=== PATIENT | female | born 1980 | race Asian ===

== ENCOUNTER 2017-10-12 09:51 | Emergency (ER) | payer OTHER, SELFPAY ==
[~2017-10-12] VITALS: Ht 154.9 cm; Wt 68.0 kg
[2017-10-12 09:53] VITALS: BP 148/87
[2017-10-12] MEDS ORDERED: CEFAZOLIN 1,000 MG ONE (10:41)
[2017-10-12] MEDS ORDERED: LIDOCAINE-MPF 2% ,5ML ONE (10:41)
[2017-10-12] MEDS ORDERED: DIPH,PERTUSS(ACELL),TET VAC/PF 0.5 ML IM-VACC ONE ×2 (10:42→11:00)
[2017-10-12] MEDS ORDERED: LIDOCAINE 2%, 20ML SQ ONE (11:00)
[2017-10-12] MEDS ORDERED: CEFAZOLIN 1,000 MG IM ONE (11:00)
[2017-10-12] MEDS ORDERED: BACITRACIN ZINC OINT 500U/GM, 0.9 GM ONE (11:58)
== END 2017-10-12 12:23 | disposition home or self-care (01) ==
LOC: ED 12:15
DX: S61.214A Laceration without foreign body of right ring finger without damage to nail, initial encounter (principal); W27.8XXA Contact with other nonpowered hand tool, initial encounter; Y93.89 Activity, other specified; Y92.69 Other specified industrial and construction area as the place of occurrence of the external cause; Y99.0 Civilian activity done for income or pay
CPT/HCPCS: 12001; 73130; 90471; 90715; 96372; 99284; J0690